=== PATIENT | male | born 1955 | race Caucasian/White ===

== ENCOUNTER 2018-04-17 14:42 | Outpatient (CLI) | payer BC, OTHER | END 2018-04-17 14:43 | disposition home or self-care (01) | LOC: CT 14:42 | PROVIDERS: ATTEND Internal Medicine | DX: Z13.6 Encounter for screening for cardiovascular disorders (principal); I70.90 Unspecified atherosclerosis; Z82.49 Family history of ischemic heart disease and other diseases of the circulatory system | CPT/HCPCS: 75571 ==